=== PATIENT | female | born 1985 | race Caucasian/White ===

== ENCOUNTER 2017-02-11 11:22 | Inpatient (IN) ==
[2017-02-11] MEDS ORDERED: SODIUM CHLORIDE 0.9% INJ ONE (11:42)
[2017-02-11] MEDS ORDERED: PHENERGAN IV ONE (11:42)
[2017-02-11] MEDS ORDERED: D5 NS + KCL 20 MEQ 1,000 ML IV ONE (11:43)
[2017-02-11 12:34] LABS: BASO% 0.1 % (0.0-0.8); EOS# 0.05 X1000 (0.0-0.7); EOS% 0.6 % (0.0-10.0); HEMATOCRIT 36.4 % (37.0-47.0); HEMOGLOBIN 11.6 g/dL (12.0-16.0); IMM GRAN# 0.11 X1000 (0.0-0.04); IMM GRAN% 1.3 % (0.0-0.5); LYMPH# 0.78 X1000 (1.2-3.4); LYMPH% 8.9 % (20.5-51.1); MCH 27.4 PG (27-31); MCHC 31.9 g/dL (33-37); MCV 86.1 FL (81-99); MONO# 0.73 X1000 (0.11-0.59); MONO% 8.3 % (1.7-9.3); NEUT% 80.8 % (42.2-75.2); PLT 234 X1000 (130-400); RBC 4.23 XMIL (4.2-5.4)
[2017-02-11 12:36] LABS: MANUAL DIFF NEEDED? NO
[2017-02-11 12:43] LABS: AGAP 13; ALBUMIN 3.5 g/dL (3.5-5.0); ALKALINE PHOSPHATASE 186 U/L (32-104); BUN 9 mg/dL (8-22); CALCIUM 8.5 mg/dL (8.8-10.2); CHLORIDE 99 mmol/L (98-107); COSMO 274; GOT 17 U/L (10-30); GPT 16 U/L (10-36); POTASSIUM 4.4 mmol/L (3.5-5.1); SODIUM 138 mmol/L (136-145); TCO2 26 mmol/L (25-35); TOTAL PROTEIN 7.1 g/dL (6.3-8.3)
[2017-02-11] MEDS ORDERED: ATIVAN IV ONE (13:26)
--- NOTE | 2017-02-11 13:58 | PROVIDER DOCUMENTATION ---
This chart was entered by Renee Matias Scribe, acting as scribe for Romaine Thornton MD. HPI-Abdominal Pain/GI Problem - General Chief Complaint: N/V/D Stated Complaint: N/V/D Time Seen by Provider: 02/11/17 11:30 Source: patient, family (mother) Allergies/Adverse Reactions: Patient Allergies Allergy/AdvReac Type Severity Reaction Status Date / Time metronidazole [From Flagyl] Allergy Severe NAUSEA/VOMI Verified 01/05/17 15:32 TING Metronidazole HCl * Allergy Severe NAUSEA/VOMI Verified 01/05/17 15:32 [From Flagyl] TING Tetracyclines Allergy Severe VOMITING Verified 01/05/17 15:32 piperacillin sodium * Allergy Intermediate ITCHING Verified 01/05/17 15:32 [From Zosyn] tazobactam sodium * Allergy Intermediate ITCHING Verified 01/05/17 15:32 [From Zosyn] hydrocodone [Hydrocodone] Allergy Mild Unknown Verified 01/05/17 15:32 nabumetone [From Relafen] Allergy Mild NAUSEA Verified 01/05/17 15:32 Home Medications: Home Medication List Medication Instructions Recorded Confirmed Last Taken Type Citalopram Hydrobromide [Celexa] 20 mg PO DAILY 10/29/14 02/11/17 02/11/17 08: 00 History Estradiol/Norethindrone Acet 1 tab PO DAILY 10/29/14 02/11/17 02/11/17 08:00 History [Activella 0.5-0.1 mg Tablet] Omeprazole Magnesium 40 mg PO DAILY 10/29/14 02/11/17 02/11/17 08:00 History Promethazine [Phenergan] 25 mg VT Q6H PRN PRN #20 supp 04/30/16 02/11/17 22:00 Rx Morphine E.r. [Ms Contin] 45 mg PO BID 01/05/17 02/11/17 02/11/17 08:00 History Oxycodone HCl/Acetaminophen 1 each PO 4XDAY 01/05/17 02/11/17 01/06/17 06:00 History [Percocet 10-325 mg Tablet] Levothyroxine Sodium 50 mcg PO DAILY 02/11/17 02/11/17 Unknown History [Levothyroxine Sodium] Lorazepam [Lorazepam] 1 - 2 tab PO Q8HR PRN 02/11/17 02/11/17 Unknown History - History of Present Illness-ABD Nature of Presenting Problems: Pt is 31 y/o F presents to the ED with N/V/D. Pt states symptoms have been present for 3 days. Pt states she has not been able to keep anything down. Pt states she was able to keep down phenergan and oxy this am for pain. Pt states received IV chemo Tuesday. Pt states has not received IV chemo in one year. Pt states usually takes chemo pills. Pt states having cancer of colon that has moved to lungs, spine and abdomen. Pt states yesterday receiving fluids at [facility]. Pt's mother states 54 lb weight loss in 8 mths. Pt states oxygen at night. Pt denies F and chills. Abdominal Pain Onset Location: reports: generalized abdomen Pain Radiation: reports: no radiation Quality of Pain: reports: aching Severity in ED: reports: moderate Onset/Duration: reports: 3 days ago Timing: reports: still present Activities at Onset: reports: light activity Exposure to sick contacts?: No Modifying Factors: improves with: nothing Associated Symptoms: reports: diarrhea, loss of appetite, nausea, vomiting, weakness. denies: anxiety, arm pain, back/neck pain, chest pain, constipation, cough, diaphoresis, dizziness, EENT symptoms, fatigue, fever/chills, genitourinary problems, headaches, heartburn, joint pain, malaise, muscle aches , sinus congestion/drainage, rash, seizure, shortness of breath, sensory/motor loss, pain with inspiration, swelling/mass in abdomen, syncope, trouble walking Last BM: unsure Dark Stools Present?: reports: none noticed Rectal Bleeding: reports: none Rectal Pain: reports: none Emesis Description: reports: clear Bruising or Bleeding Gums?: No Similar Symptoms Previously?: Yes Recently seen or treated by another doctor?: Yes (seen at cancer center 24 hrs ago ) Review of Systems - Adult - REVIEW OF SYSTEMS - ADULT Constitutional: reports: no symptoms reported Eyes: reports: no symptoms reported Ears, Nose, Mouth & Throat: reports: no symptoms reported Cardiovascular: reports: no symptoms reported Respiratory: reports: no symptoms reported Gastrointestinal: reports: abdominal pain, diarrhea, nausea, poor appetite, vomiting Genitourinary: reports: no symptoms reported Musculoskeletal: reports: no symptoms reported Integumentary: reports: no symptoms reported Neurological: reports: no symptoms reported Psychiatric: reports: no symptoms reported Endocrine: reports: no symptoms reported Hematologic/Lymphatic: reports: no symptoms reported Allergic/Immunologic: reports: no symptoms reported All Other Systems: Reviewed and Negative Past History - Adult - PAST MEDICAL HISTORY-ADULT Review of Records: reports: Nursing Assessment Review, Medications Reviewed, Social history reviewed & non-contributory. Major Childhood Illnesses: reports: denies history Cardiovascular: reports: denies history Respiratory: reports: denies history Gastrointestinal: reports: cancer (colon) Obstetrical/Gynecological: reports: denies history Genitourinary: reports: denies history Musculoskeletal: reports: denies history Neurological: reports: denies history Endocrine/Immune: reports: hypoglycemia Other Conditions: reports: denies history - PRIOR SURGERIES/PROCEDURES Surgical/Procedure History: reports: hysterectomy, indwelling device, bowel surgery - IMMUNIZATION STATUS Childhood Immunizations: See Nurse Assessment Flu Vaccine: See Nurse Assessment - FAMILY HISTORY Family History: reviewed, not pertinent - SOCIAL HISTORY Smoking: denies Substance Use: denies Living Situation: family Physical Exam-General - PHYSICAL EXAM-ADULT Initial Vital Signs Reviewed: Yes - CONSTITUTIONAL General Appearance: alert, no apparent distress, thin - EYES Eyes: PERRL/EOMI, pink conjunctivae - HEAD, EARS, NOSE, MOUTH & THROAT HENMT: normocephalic/atraumatic, other (dry mucous membranes) - NECK Neck: normal inspection - RESPIRATORY Respiratory: chest non-tender, lungs clear, normal breath sounds - CARDIOVASCULAR Cardiovascular: normal peripheral pulses, regular rate, rhythm, other (port present to L side of chest) - GASTROINTESTINAL (ABDOMEN) Abdominal Exam: normal bowel sounds, non tender, soft - LYMPHATIC Lymphatic: no adenopathy - MUSCULOSKELETAL Back Exam: normal inspection Extremity: non-tender, normal inspection - SKIN Integumentary: normal color, normal turgor, warm/dry - NEUROLOGIC Neurologic: grossly normal - PSYCHIATRIC Psych/Mental Status: normal mood/affect, oriented x 3 Progress - PLAN OF CARE/RESULTS Progress/Plan/Lab Results: Vital Signs - 8 hr 02/11/17 11:26 Temperature 98.4 F Pulse Rate 123 H Respiratory Rate 22 Blood Pressure 118/76 O2 Sat by Pulse Oximetry 97 Result Diagrams: 02/11/17 12:14 02/11/17 12:14 - CONSULTS/PCP/HOSPITALIST Notification #1 *Consult/PCP/Hospitalist*: Hospitalist Time Discussed: 13:40 Reason/Comments: Dr. Thornton consulted with Hospitalist about admit of PT Consult Disposition: Admit Departure - Departure Date of Disposition Decision: 02/11/17 Time of Disposition Decision: 13:41 DIAGNOSIS: Vomiting due to chemotherapy Intractable vomiting Qualifiers: Vomiting type: unspecified Nausea presence: with nausea Qualified Code(s): R11.2 - Nausea with vomiting, unspecified Colon cancer Qualifiers: Colon location: unspecified part of colon Qualified Code(s): C18.9 - Malignant neoplasm of colon, unspecified Disposition: ADMITTED INPATIENT 09 Certified Medical Emergency: Emergent Condition: Good Referrals and Follow-Ups: Stephon Harrison [Primary Care Provider] - - Critical Care Note This patient required my direct & personal management of CC.: No This chart was documented by the indicated scribe, (Renee Matias, Thom) and accurately reflects the services I performed and decisions made by me, Romaine Thornton MD, as attested by the provider's signature.
--- NOTE | 2017-02-11 15:12 | Diag Imaging Result Doc PS360 ---
EXAM: THORAX/ABDOMEN/PELVIS HISTORY: severe n/v. H/o stage 4 colon ca TECHNIQUE: CT of the chest with intravenous contrast with dose reduction (clarity.) COMMENT: There are bilateral pleural fluid collections more so on the right than the left. Compared to the previous study of 12/02/2016 this is slightly worse. The mediastinum has not changed significantly. Numerous bilateral pulmonary nodules are present. These have generally increased in size since the previous study and have formed conglomerate masses in the lung bases which were not present previously. This is particularly evident in comparing the current study image 62 with that of the previous exams 75. CT of the abdomen with intravenous contrast: The gallbladder is distended unlikely previous examination of 12/02/2016. The spleen is actually slightly smaller measuring under 13 cm in AP dimension. The common bile duct is similar in size measuring almost 10 mm. There is a ureteral stent in the right kidney which was not present previously. There is fluid throughout the colon. The small bowel does not appear to be distended. There is some anasarca. The adrenal glands are not enlarged. There is there is retroperitoneal adenopathy some of which may be calcified. This is matted to over the lower abdomen to below the level of the bifurcation of the aorta. In aggregate to the adenopathy measures over 7.2 cm in diameter. This compares with 7.[address] of the pelvis with intravenous contrast: There is stool in the rectum. The urinary bladder wall is somewhat thickened. There is a small amount of free fluid in the pelvis. There are surgical clips and apparent suture lines in the rectum. There has been very little change in the appearance of the pelvis since the previous study. There is a mixed sclerotic lytic lesion on the left side of the L4 vertebral body which was not present at the time the previous study. Severe osteoblastic changes in the T12 and L1 vertebral bodies are again noted which have not changed. IMPRESSION: 1. Worsened pulmonary metastatic disease and pleural effusions. 2. Worsened anasarca and bony metastatic disease in L4. 3. Slightly improved retroperitoneal adenopathy. Electronically signed by Charles Zuleta 02/11/2017 3:10 PM
--- NOTE | 2017-02-11 15:49 | HISTORY AND PHYSICAL ---
PRIMARY CARE PROVIDER: Dr. Harrison. CHIEF COMPLAINT: Nausea, vomiting, diarrhea. HISTORY OF PRESENT ILLNESS: Ms. Langston is a very kind, yet unfortunate 31- year-old, female, who presents to the emergency department with complaints of right-sided abdominal pain and intractable nausea, vomiting, and diarrhea that started Tuesday. The patient has a history of stage IV metastatic colon cancer. She states that she had a small dose of chemotherapy administered on Tuesday at Dr. Stubbs's office, but was not pretreated for nausea and believes that this was the cause of her acute illness. She is also complaining of pain in her right lower quadrant, but states that this has been there for quite some time. Also, pain in her lower back, interestingly, the patient had ureteral stent placement by Dr. Patterson on 01/27/17. She denies fevers or chills. The patient states that none of this pain is new. The patient is A and O x3 and appears to be in no acute distress. Patient's parents are sitting at the bedside, along with a male guest. Denies any other symptoms. PAST MEDICAL HISTORY: 1. Stage IV metastatic colon cancer. 2. Hypothyroidism. 3. GERD. 4. Anxiety. 5. Chronic pain. PAST SURGICAL HISTORY: 1. Colon resection. 2. Colostomy and reversal. 3. Partial hysterectomy. 4. Ureteral stent. FAMILY HISTORY: Positive for diabetes, hypertension and dementia. But denies a family history of colon cancer. SOCIAL HISTORY: Denies the use of alcohol, tobacco, or illicit drugs. ALLERGIES: 1. Flagyl. 2. Tetracyclines. 3. Zosyn. 4. Hydrocodone. 5. Relafen. HOME MEDICATIONS: 1. Phenergan 25 mg p.r. q.6 hours p.r.n. 2. Percocet 10/325, p.o. q.4 hours. 3. Omeprazole magnesium 40 mg p.o. daily. 4. MS Contin 45 mg p.o. b.i.d. 5. Lorazepam 1 mg q.8 hours p.r.n. 6. Levothyroxine 50 mcg p.o. daily. 7. Activella 0.5/0.1 mg p.o. daily. 8. Celexa 20 mg p.o. daily. REVIEW OF SYSTEMS: See HPI. LABORATORY AND DIAGNOSTICS: White blood cell count 8.75, RBCs 4.23, hemoglobin 11.6, hematocrit 36.4, MCV 86.1, MCH 27.4. Sodium 138, potassium 4.4, chloride 99, bicarb 26, anion gap 13, BUN 9, creatinine 0.5, GFR greater than 60. Glucose 95, calcium 8.5, phosphorus 2.5, mag 2.0. AST 17, ALT 16, alkaline phosphatase 186, albumin 3.5. PHYSICAL EXAMINATION: VITAL SIGNS: Temperature 97.8, pulse rate 110, respiratory rate 18, blood pressure of 121/71. MAP 82. SpO2 97 on room air. GENERAL: Ms. Langston is a very petite, 31-year-old, female, who appears to have low nourishment, yet well developed and in no acute distress at this time. HEENT: Atraumatic. Normocephalic. PERRL. Mucous membrane moist. NECK: Supple. No lymphadenopathy. Trachea midline. No JVD. No thyromegaly. No bruits. CARDIOVASCULAR: Rate tachycardic, yet regular with no murmurs, no gallops. No rubs. S1-S2 heard. RESPIRATORY: Lung sounds clear and equal bilaterally with equal chest exertion and expansion. Nonlabored with no accessory muscle use. GI: Soft, and tender in the lower quadrants bilaterally. Nondistended. Bowel sounds normoactive x4 quadrants. Negative abdominal bruits. : Deferred. NEURO: No focal deficits noted. MUSCULOSKELETAL: Distal strength positive with steady gait. EXTREMITIES: No clubbing, no cyanosis, no edema. Distal pulses present and intact. SKIN: Warm, dry, intact with no rashes, no bruises. Patient's skin is pale. ASSESSMENT AND PLAN: 1. Right lower quadrant abdominal pain. We will order a CAT scan of the abdomen to rule out possible bowel obstruction. 2. Nausea, vomiting, diarrhea. The patient is currently wearing a Zofran patch , so we will treat nausea with Phenergan as needed. We will assess the cause of the diarrhea and nausea with a CAT scan of the abdomen and pelvis as listed above. We will keep the patient hydrated with IV normal saline at 85 mL per hour. 3. Stage IV metastatic colon cancer. We will consult Dr. Stubbs so that she may follow her patient closely while in the hospital. Again, we will perform a CAT scan of the abdomen and pelvis as listed above to rule out any further metastases or bowel obstruction. 4. Chronic pain. We will continue patient on home medications as needed for pain. 5. Hypothyroidism. We will check TFTs and manage accordingly. DVT PPx: Lovenox Dictated by BRANDEN De Leon for Kristen Kenny MD cc: BRANDEN De Leon MD Heather Shah, MD Dr. Hall MTDD
[2017-02-11] MEDS ORDERED: PHENERGAN PR PRN (16:16)
[2017-02-11] MEDS: PERCOCET-10 PO SCH ×2 (17:49→21:42)
[2017-02-11] MEDS: NS 1,000 ML IV SCH (17:50)
[2017-02-11] MEDS ORDERED: SODIUM PHOSPHATE 30 MMOL in NS 250 ML IV ONE (18:00)
[2017-02-11] MEDS ORDERED: MS CONTIN PO SCH (21:00)
[2017-02-11 22:23] LABS: URINE CULTURE NEEDED? NO; URINE MICRO REVIEW NEEDED? NO; URINE SOURCE CLEAN CATCH
[2017-02-11 22:27] LABS: BILIRUBIN URINE NEGATIVE (NEGATIVE); BLOOD URINE NEGATIVE (NEGATIVE); COLOR YELLOW; GLUCOSE URINE NEGATIVE (NEGATIVE); LEUKOCYTES URINE SMALL (NEGATIVE); NITRITE URINE NEGATIVE (NEGATIVE); PROTEIN URINE TRACE mg/dL (NEGATIVE); TURBIDITY URINE CLEAR (CLEAR); UR EPITHELIAL CELLS <10 /HPF (<10); URINE BACTERIA 1+ /HPF; URINE RBC <10 /HPF (<10); URINE WBC <10 /HPF (<10); UROBILINOGEN URINE NORMAL (NORMAL)
[2017-02-11 22:32] LABS: SP GRAVITY URINE 1.005
[2017-02-11] MEDS: PHENERGAN IV PRN (22:38)
[2017-02-12] MEDS: PERCOCET-10 PO PRN ×3 (05:26→15:34)
[2017-02-12 05:36] LABS: HEMATOCRIT 33.7 % (37.0-47.0); HEMOGLOBIN 10.7 g/dL (12.0-16.0); MCH 27.6 PG (27-31); MCHC 31.8 g/dL (33-37); MCV 87.1 FL (81-99); RBC 3.87 XMIL (4.2-5.4)
[2017-02-12] MEDS: NS 1,000 ML IV SCH ×3 (05:56→15:53)
[2017-02-12] MEDS: PHENERGAN IV PRN ×4 (05:56→21:04)
[2017-02-12] MEDS: SODIUM CHLORIDE 0.9% INJ PRN ×2 (05:56→21:04)
[2017-02-12 06:34] LABS: AGAP 14; BUN 7 mg/dL (8-22); CALCIUM 7.9 mg/dL (8.8-10.2); CHLORIDE 105 mmol/L (98-107); COSMO 280; IRON SATURATION 38 %; POTASSIUM 3.7 mmol/L (3.5-5.1); SODIUM 142 mmol/L (136-145); TCO2 23 mmol/L (25-35); TIBC 166 ug/dL; TOTAL IRON 63 ug/dL (49-151); UNBOUND IRON 103 ug/dL (112-346)
[2017-02-12] MEDS ORDERED: ESTRADIOL PO SCH (09:00)
[2017-02-12] MEDS ORDERED: NORETHINDRONE ACET PO SCH (09:00)
[2017-02-12] MEDS: SYNTHROID PO SCH (10:29)
[2017-02-12] MEDS: CELEXA PO SCH (10:29)
[2017-02-12] MEDS: PRILOSEC PO SCH (10:29)
[2017-02-12] MEDS: MS CONTIN PO SCH ×2 (10:29→21:59)
[2017-02-12 13:57] LABS: INR 1.07; PROTIME 11.3 Seconds (9.2-11.7)
--- NOTE | 2017-02-12 14:40 | PROGRESS NOTE ---
DATE: 02/12/2017 SUBJECTIVE: The patient states that she is still feeling nauseous, but has not had any vomiting spells since she has been in the hospital. The patient states that her diarrhea has improved. OBJECTIVE: Vital Signs: Temperature 98 degrees, blood pressure 120/69, heart rate 87, respirations 12, O2 saturations 95% on room air. General: This is a young female, lying in bed in no acute distress. Head: Normocephalic, atraumatic. Heart: S1, S2. Normal. Regular rate and rhythm. Lungs: Clear to auscultation bilaterally. No wheezing, no rales, no rhonchi. Abdomen: Positive bowel sounds, soft, nontender and nondistended. Extremities: No edema. No cyanosis. No calf tenderness. Neurologic: The patient is alert and oriented x3. No focal neurologic deficits noted. LABS: White blood cell count 5.1, hemoglobin 10, hematocrit 33, platelets 132. Sodium 142, potassium 3.7, chloride 105, CO2 23, BUN 7, creatinine 0.4, glucose 82. ASSESSMENT AND PLAN: 1. Persistent nausea and vomiting. The patient reports that she has been having problems with being able to keep food down since last April. We will continue with antiemetic therapy and consult gastroenterology. The patient is currently on intravenous fluid hydration. The patient may benefit from a gastric emptying study if no other etiology can be found. 2. Diarrhea appeared improved. 3. Metastatic colon cancer. Aware. Dr. Stubbs has been consulted. 4. Hypothyroidism. Continue on Synthroid. 5. Situational depression. Continue on Celexa. 6. Chronic pain secondary to metastatic disease. Continue on MS Contin 60 mg oral every 12 hours plus Percocet as needed. cc: Kristen Kenny MD
[2017-02-12] MEDS: ZYRTEC PO SCH (15:53)
--- NOTE | 2017-02-12 16:32 | CONSULTATION ---
DATE OF CONSULTATION: 02/12/2017 REQUESTING PHYSICIAN: Dr. Kenny. REASON FOR CONSULTATION: Colon cancer, patient known. HISTORY OF PRESENT ILLNESS: Ms. Langston is a 31-year-old, female, who is known to us as we are currently treating her for metastatic colorectal cancer. The patient had several lines of therapy previously. She has also recently been to [facility] for evaluation for possible clinical trial there, but did not qualify due to her respiratory status. Patient was recently started on Cyramza and Camptosar which she received on 02/07/2017. The patient had start calling our office towards the middle of the week complaining of nausea and vomiting as well as diarrhea. She was brought in a couple times to receive IV fluids and IV antiemetics. However on Tuesday01/20/2017, they called and reported that the patient was now unable to keep any food down including any pills. Patient is unable to keep her oral antiemetics and her long-acting pain medications down due to the nausea and vomiting. Patient was advised to report to the emergency department for further evaluation and treatment. It was decided for the patient to be admitted. Currently, the patient reports that she is doing much better. She has been getting IV Phenergan which has really helped her nausea and vomiting. She actually ate a clear liquid diet this morning, which so far has not caused her any problems. Patient is also now able to take her p.o. pain medications. PAST MEDICAL HISTORY: 1. Metastatic colon cancer. 2. Hypothyroidism. 3. GERD. 4. Anxiety. 5. Chronic pain. PAST SURGICAL HISTORY: 1. Colon resection. 2. Colostomy and reversal. 3. Partial hysterectomy. 4. Ureteral stent placement. 5. Previous spinal surgery due to cord compression. FAMILY HISTORY: Positive for diabetes, hypertension, and dementia. There is no family history of colon cancer. SOCIAL HISTORY: Patient denies any alcohol, tobacco, or illicit drug use. REVIEW OF SYSTEMS: As per the HPI. All else is negative. PHYSICAL EXAMINATION: Vital Signs: Temperature 97.8 degrees, heart rate 86, respirations 14, blood pressure 132/86, O2 saturation 97% on room air. General: Thin female, lying in hospital bed with her family at bedside. She is in no acute distress. HEENT: Head normocephalic, atraumatic. Eyes: Pupils equal, round, reactive. Ears, nose , throat, neck, and mouth: Mucosa appears to be normal. Trachea is midline. Cardiovascular: S1, S2 heard without any murmurs, gallops or rubs appreciated. Respiratory: Chest is clear to auscultation bilaterally with normal respiratory effort. Abdomen: Soft, nontender. Positive bowel sounds. Musculoskeletal: No bony abnormalities. Extremities: No edema. Neurologic : Patient is alert and orient x3. No focal motor deficits. LABORATORY STUDIES: White blood cells 5.14, hemoglobin 10.7, hematocrit 33.7, platelets 132,000. Sodium 142, potassium 3.7, chloride 105, BUN 7, creatinine 0.4, glucose 82. B12 adequate, folate 13.5, TSH 5.95, ferritin 266, iron 63, saturation percent 38. CT of chest, abdomen and pelvis which was compared to 12/02/2016 shows some worsening pulmonary metastatic disease and pleural effusions, worsening anasarca, and bony metastasis metastatic disease in L4, and a slightly improved retroperitoneal adenopathy. ASSESSMENT AND PLAN: 1. Metastatic colorectal cancer. The patient is now on Cyramza and Camptosar. Hospice versus palliative chemotherapy has been discussed with the patient previously. She is to proceed with more palliative chemotherapy as previously mentioned. Treatment currently on hold during her acute issues. Of note, patient did receive Neulasta on 02/08/2017. 2. Nausea and vomiting. Better controlled now with IV Phenergan. Continue it at this time. Continue to advance diet slowly. 3. Diarrhea. Camptosar can cause diarrhea. Believed to likely be treatment related. Cyramza can also cause some diarrhea. Continue current management. Stool cultures have been ordered. The patient has also been evaluated by GI. 4. Chronic pain secondary to colon cancer. The patient is currently on her home medications which she will continue. She is able to now take these without any issue. Continue the IV Phenergan as previously mentioned. 5. Dehydration. Patient will continue to receive IV fluids. Dehydration secondary to the nausea, vomiting and diarrhea. We want to thank you for consulting us on Ms. Langston while she is here at [facility]. We will continue following and adjust her treatment plan per her hospital course. Dictated by SARY Crouch for Va Stubbs MD cc: Va Stubbs MD [facility]
--- NOTE | 2017-02-12 16:38 | CONSULTATION ---
DATE OF CONSULTATION: 02/12/2017 CONSULTATION REASON: Nausea, vomiting, diarrhea, history of colon cancer. HISTORY OF PRESENT ILLNESS: This is a 31-year-old white female who reported to the emergency room with abdominal pain, nausea, vomiting and diarrhea that started on Tuesday. She had seen Dr. Stubbs on Tuesday and had a antibody infusion along with chemotherapy infusion. She had previously been on chemotherapy pills over the last year. She feels like the change in her chemotherapy caused her gastrointestinal symptoms. She was diagnosed with stage IV metastatic colon cancer in 2011. She states since April she has had episodes of nausea and vomiting. She has lost about 50 pounds since April. She also had recent urethral stent placement by Dr. Martinez on 01/27/2017 for obstructive symptoms related to her cancer. She usually has constipation and takes senna, MiraLAX and Colace. Yesterday she had diarrhea about 6 episodes but it stopped last night. PAST MEDICAL HISTORY: For stage IV metastatic colon cancer, hypothyroidism, GERD, anxiety, chronic pain. PAST SURGICAL HISTORY: She had colon resection in May 2012 with colostomy placement, she had repeat surgery in September 2012 for closure of her colostomy and bilateral oophorectomy. ALLERGIES: Flagyl causing nausea and vomiting, tetracycline causing vomiting, Zosyn causing itching, hydrocodone unknown, Relafen nausea. HOME MEDICATIONS: Oxycodone 10/325 one to two tablets every 4-6 hours as needed, Phenergan 25 mg every 6 hours as needed, omeprazole 40 mg daily, morphine ER 45 mg twice daily, lorazepam 1-2 tablets every 8 hours as needed, levothyroxine 50 mcg daily, Activella 1 tablet daily, Celexa 20 mg daily. SOCIAL HISTORY: Denies tobacco or alcohol use. FAMILY HISTORY: For diabetes, hypertension, dementia. No reported family history of colon cancer. REVIEW OF SYSTEMS: Per HPI. PHYSICAL EXAM: Vital Signs: Temperature 97.8 degrees, pulse 86, respirations 14, blood pressure 132/86. General: Patient is awake and alert. No acute distress. HEENT: Normocephalic, atraumatic. Pupils equal, round, reactive to light. Sclerae are nonicteric. Cardiovascular: Regular rate and rhythm. Respiratory: Lung sounds essentially clear. Abdomen: Soft, thin, nondistended. Bowel sounds present. Extremities: No lower extremity edema noted. IMPRESSION AND PLAN: 1. Nausea, vomiting, diarrhea. Continue symptomatic treatment. 2. Abdominal pain. 3. Stage IV metastatic colon cancer. Dr. Stubbs is following. CT scan showed worsened pulmonary metastatic disease and pleural effusions, worsened anasarca and bony metastatic disease in L4 and slightly improve retroperitoneal adenopathy. We will continue to be available. I have discussed this case with Dr. Tran. Continue symptomatic treatment and supportive care. Thank you for this consult. Dictated by BRANDEN Gabriel for Chandler Tran MD cc: BRANDEN Lowe MD
[2017-02-12] MEDS: ATIVAN PO PRN (19:55)
[2017-02-13] MEDS: NS 1,000 ML IV SCH ×2 (02:18→12:37)
[2017-02-13] MEDS: PERCOCET-10 PO PRN ×5 (02:18→20:34)
[2017-02-13 05:59] LABS: HEMATOCRIT 32.4 % (37.0-47.0); HEMOGLOBIN 10.1 g/dL (12.0-16.0); MCH 27.8 PG (27-31); MCHC 31.2 g/dL (33-37); MCV 89.3 FL (81-99); MPV 9.5 FL (7.4-10.4); RBC 3.63 XMIL (4.2-5.4)
[2017-02-13 06:06] LABS: AGAP 7; BUN 5 mg/dL (8-22); CALCIUM 8.1 mg/dL (8.8-10.2); CHLORIDE 107 mmol/L (98-107); COSMO 275; MAGNESIUM 1.8 mg/dL (1.5-2.7); POTASSIUM 3.8 mmol/L (3.5-5.1); SODIUM 139 mmol/L (136-145); TCO2 25 mmol/L (25-35)
[2017-02-13] MEDS: MS CONTIN PO SCH ×2 (09:08→20:14)
[2017-02-13] MEDS: PRILOSEC PO SCH (09:09)
[2017-02-13] MEDS: CELEXA PO SCH (09:09)
[2017-02-13] MEDS: SYNTHROID PO SCH (09:09)
[2017-02-13] MEDS: ZYRTEC PO SCH (09:17)
[2017-02-13] MEDS: PATIENT'S OWN MED PO SCH (09:18)
[2017-02-13] MEDS: ATIVAN PO PRN ×3 (13:10→22:22)
[2017-02-13] MEDS: PHENERGAN IV PRN ×2 (13:40→17:49)
[2017-02-13] MEDS: SODIUM CHLORIDE 0.9% INJ PRN (13:40)
--- NOTE | 2017-02-13 17:11 | PROGRESS NOTE ---
DATE: 02/13/2017 SUBJECTIVE: Patient is resting comfortably and was able to tolerate her full liquid diet and wanted to advance her diet. She denies any further vomiting today. Overall, her symptoms have improved. OBJECTIVE: Vital signs: Temperature 98.1 degrees, pulse 95 per minute, breathing at 20, blood pressure 126/98. Abdomen: Flat, soft, nontender. Bowel sounds are audible. LABORATORY AND IMAGING: Reviewed. Hemoglobin 10.1, hematocrit 32.4. CT scan of the abdomen done on 02/11/2017 showed worsened pulmonary metastatic disease with pleural effusion. There was some anasarca with bony metastasis to L4. ASSESSMENT AND PLAN: Metastatic colon cancer. Nausea, vomiting. There is question of possible gastroparesis. I think her symptoms could be related to her metastatic disease as well as medication that she is on that causes poor gastric emptying as well as sluggish bowel action. I have explained to her that in order for us to get a good read on the gastric emptying study, she will have to be taken off the pain medication for at least 12 hours, but she is reluctant to do that since she starts hurting pretty badly if she does not take her pain medications for more than 4-6 hours. In that case, there is no point in doing her gastric emptying study. I would cancel that and start her empirically on Reglan 5 mg t.i.d. a.c. Recommended her to continue MiraLAX that has helped her bowel movements and further plans of treatment will be made according to Dr. Stubbs, her oncologist, and the primary care team. cc: Chandler Tran MD
--- NOTE | 2017-02-13 17:32 | PROGRESS NOTE ---
DATE: 02/13/2017 SUBJECTIVE: The patient states that she is no longer having nausea or vomiting and she was able to tolerate a solid breakfast this morning. She did have a bowel movement yesterday. OBJECTIVE: Vital Signs: Temperature 98.1 degrees, blood pressure 126/98, heart rate 95, respirations 20, O2 saturation is 98% on room air. General: This is a young female, lying in bed, in no acute distress. Head: Normocephalic, atraumatic. Heart: S1, S2. Normal. Tachycardic. Lungs: Clear to auscultation bilaterally. No wheezing. No rales. No rhonchi. Abdomen: Positive bowel sounds. Soft, nontender, nondistended. Extremities: No edema. No cyanosis. No calf tenderness. Neurologic: The patient is alert and oriented x3. LABS: Sodium 139, potassium 3.8, chloride 107, CO2 25, BUN 5, creatinine 0.4, glucose 94. Hemoglobin 10, hematocrit 32. ASSESSMENT AND PLAN: 1. Intermittent nausea with vomiting. The patient has not had any episodes of nausea or emesis today and she was able to tolerate a solid diet. The patient is scheduled to undergo a gastric emptying study tomorrow. Continue on IV fluid hydration. GI is following. 2. Diarrhea. Resolved. 3. Hypothyroidism. Continue on Synthroid. 4. Situational depression. Continue on Celexa. 5. Metastatic colon cancer. Aware. Dr. Stubbs is following. 6. Chronic pain syndrome secondary to metastatic disease. Continue on MS Contin 60 mg oral every 12 hours plus Percocet for breakthrough pain. cc: Kristen Kenny MD
--- NOTE | 2017-02-13 18:49 | PROGRESS NOTE ---
DATE: 02/13/2017 CHIEF COMPLAINT: Dr. Tran told me my scans were much worse. Patient has been anxious overnight. PHYSICAL EXAMINATION: Vital signs: Temperature 98.1 degrees, pulse 95, respiratory rate 20, blood pressure 126/98, O2 saturation 98% on room air. General: This is a chronically ill- appearing woman in no acute distress. Her and her parents are at the bedside during visit. Eyes: Sclerae anicteric. Cardiovascular: Regular rate and rhythm. Normal S1, S2. No murmurs, rubs, or gallops. Pulmonary: Lungs clear auscultation bilaterally without wheezes, rales, or rhonchi. Gastrointestinal: Abdomen is soft, nontender, nondistended with normoactive bowel sounds. Extremities: No clubbing, cyanosis, or edema, 2+ pulses x4. Neuro: Alert, oriented x3, no focal deficit. LABORATORY DATA: White count 6, hemoglobin 10, platelet count 120,000. Sodium 139, creatinine 0.4, magnesium 1.8, cultures are negative. INR 1.07. Imaging was reviewed with the patient. However imaging in the hospital system appears to have been compared to images from over 1 year ago versus recent imaging that she has had at our office. I will request official comparison at her request. ASSESSMENT AND PLAN: 1. Nausea, vomiting: Improved. She has a mild nausea right now and is using Phenergan as needed. Gastric emptying study was planned but cannot be done while she is on her current pain medications. I have recommended a trial of Reglan. I will prescribe Reglan at this time and we will reassess. She will follow up with Dr. Tran over the next 24 hours. 2. Diarrhea: Treatment induced. Resolved. Her cultures were negative and C. difficile was negative. Continue supportive care. 3. Metastatic colorectal cancer: She is status post therapy last week. Treatment will be held until she recovers from her acute event. 4. Chronic pain: Related to her tumor. Continue her MS Contin and short-acting pain medications as needed. I have discussed her scan results which show continued mild regression as seen on her scans in our office recently. I will have official comparison as above done by radiology. cc: Va Stubbs MD
[2017-02-13] MEDS: REGLAN PO SCH (20:13)
[2017-02-13] MEDS ORDERED: MIRALAX PO SCH (21:00)
[2017-02-14 05:37] VITALS: BP 125/87
[2017-02-14] MEDS: PERCOCET-10 PO PRN (06:37)
[2017-02-14 06:51] LABS: HEMATOCRIT 33.8 % (37.0-47.0); HEMOGLOBIN 10.7 g/dL (12.0-16.0); MCH 27.7 PG (27-31); MCHC 31.7 g/dL (33-37); MCV 87.6 FL (81-99); MPV 9.7 FL (7.4-10.4); RBC 3.86 XMIL (4.2-5.4)
[2017-02-14] MEDS: REGLAN PO SCH ×2 (06:55→11:24)
[2017-02-14 06:59] LABS: AGAP 10; BUN 4 mg/dL (8-22); CALCIUM 8.1 mg/dL (8.8-10.2); CHLORIDE 106 mmol/L (98-107); COSMO 276; MAGNESIUM 1.6 mg/dL (1.5-2.7); POTASSIUM 3.6 mmol/L (3.5-5.1); SODIUM 140 mmol/L (136-145); TCO2 24 mmol/L (25-35)
[2017-02-14] MEDS ORDERED: REGLAN PO SCH (07:00)
[2017-02-14] MEDS ORDERED: MAGNESIUM SULFATE 2 GM/S.W.I. 2 GM/50 ML IVPB IV ONE (07:14)
[2017-02-14] MEDS ORDERED: NS 1,000 ML ONE (07:16)
[2017-02-14] MEDS: NS 1,000 ML IV SCH ×2 (08:42)
[2017-02-14] MEDS: CELEXA PO SCH (08:44)
[2017-02-14] MEDS: SYNTHROID PO SCH (08:44)
[2017-02-14] MEDS: PATIENT'S OWN MED PO SCH (08:44)
[2017-02-14] MEDS: MS CONTIN PO SCH (08:44)
[2017-02-14] MEDS: ZYRTEC PO SCH (08:44)
[2017-02-14] MEDS: PRILOSEC PO SCH (08:44)
[2017-02-14] MEDS ORDERED: MIRALAX PO SCH (09:00)
--- NOTE | 2017-02-14 13:17 | PROGRESS NOTE ---
DATE: 02/14/2017 SUBJECTIVE: Patient states she is feeling better. She is eating breakfast from an outside restaurant and tolerating that well. She states she had seen Dr. Stubbs, and she was comparing the CT scan that she had in her office to the recent one which had showed some mild regression from the CT in the office recently. The comparison of the CT scan done in the hospital was from 12/02/2016. She has seen Dr. Tian, who talked with the patient about the CT scan and discussed with her the findings from the scans that she does at [facility] in comparison to the scan that was done here in the hospital. The scan from [facility] had showed some mild regression of her disease. OBJECTIVE: Vital Signs: Temperature 97.6 degrees, pulse 91, respirations 20, blood pressure 125/87. LABORATORY: Hematology: White count 7.55, hemoglobin 10.7, hematocrit 33.8, MCV 87.6. Chemistry: Sodium 140, potassium 3.6, chloride 106, CO2 24, BUN 4, creatinine 0.4, glucose 96. ASSESSMENT AND PLAN: 1. Nausea and vomiting have improved. 2. Diarrhea is improving. Her stool cultures and Clostridium difficile culture was negative. 3. Metastatic colorectal cancer following with Dr. Stubbs. 4. Chronic pain. Continue symptomatic treatment and p.r.n. medications for nausea and pain. We will continue to be available as needed. The patient states she will probably get to go home today. She will follow up with Dr. Stubbs, as she recommends. Dictated by BRANDEN Gabriel for Chandler Tran MD cc: BRANDEN Lowe MD [facility]
--- NOTE | 2017-02-14 15:15 | PROGRESS NOTE ---
DATE: 02/14/2017 SUBJECTIVE: Ms. Langston is feeling better today. She ate some pancakes for breakfast. She is ready to go home. OBJECTIVE: Vital Signs: Temperature 97.6 degrees, heart rate 91, respirations 20, blood pressure 125/87, O2 saturation 95% on room air. CARDIOVASCULAR: Regular rate and rhythm. S1-S2 heard. No murmurs, gallops, rubs appreciated. Respiratory: Chest is clear to auscultation bilaterally with normal respiratory effort. Gastrointestinal: Some diffuse mild tenderness to palpation. No guarding. No rebounding. Positive bowel sounds. Extremities: No edema or swelling noted. LABORATORY: White blood cells 7.55. Hemoglobin 10.7, hematocrit 33.8, platelets a 123,000. Sodium 140, potassium 3.6, chloride 106, CO2 10, BUN 4. Creatinine 0.4. Glucose 276. ASSESSMENT AND PLAN: 1. Metastatic colorectal cancer. The patient will follow up with us as an outpatient to receive further palliative chemotherapy. 2. Nausea and vomiting. This has greatly improved. Much better control. She will be transitioned back to oral antibiotics as needed. 3. Delayed gastric emptying. Patient is tolerating Reglan and will continue upon discharge. 4. Diarrhea. This has resolved. Cultures have all been negative. Treatment induced. 5. Chronic pain related to her metastatic cancer. The patient will continue on her current p.o. pain medications. The pain is well controlled. DISPOSITION: We agree that the patient can be discharged today. She will have follow up with us as an outpatient. Dictated by SARY Crouch for Va Stubbs MD cc: Va Stubbs MD I have seen and examined the patient and I agree with the above A/P. Discharge home on regular diet as tolerated and Reglan QAC and QHS for now. Keep scheduled follow up with us next week. Va HANCOCK
--- NOTE | 2017-02-14 21:23 | DISCHARGE SUMMARY ---
ADMISSION DATE: 02/11/2017 DISCHARGE DATE: 02/14/2017 FINAL DISCHARGE DIAGNOSES: 1. Nausea with vomiting. 2. Diarrhea. 3. Hypothyroidism. 4. Metastatic colon cancer. 5. Situational depression. 6. Chronic pain syndrome secondary to metastatic disease. CONSULTATIONS PERFORMED DURING THIS HOSPITAL STAY: 1. Oncology consultation with Dr. Stubbs. 2. GI consultation with Dr. Tran. HOSPITAL COURSE: Ms. Langston is a 31-year-old female with a history of metastatic colon cancer who presented to the ER with a chief complaint of persistent nausea and vomiting. The patient was placed on bowel rest, started on IV fluids, pain medication and antiemetics. With bowel rest the patient's symptoms improved. Her diet was slowly advanced and she was started on Reglan before meals and at bedtime. This resulted in improvement in the patient's symptoms. The patient continued to improve clinically and was able to tolerate a solid diet on the day of discharge with no nausea or vomiting. The patient was discharged home on 02/14/2017. DISCHARGE MEDICATIONS: 1. MS Contin 60 mg p.o. every 12 hours. 2. Reglan 5 mg before meals and at bedtime. 3. Omeprazole 40 mg p.o. daily. 4. Celexa 20 mg p.o. daily. 5. Phenergan 25 mg per rectum every 6 p.r.n. for nausea. 6. Percocet 10/325, 1 tab oral every 4 hours p.r.n. for breakthrough pain. 7. Synthroid 50 mg oral daily. 8. Ativan 1 tab oral every 8 hours p.r.n. for anxiety. DISCHARGE DIET: Regular diet. ACTIVITY: As tolerated. FOLLOWUP INSTRUCTIONS: The patient will need to follow up with Dr. Stubbs . cc: Kristen Kenny MD
== END 2017-02-14 13:26 | disposition home or self-care (01) ==
LOC: ED 11:22 → 4N 14:38
PROVIDERS: ATTEND Internal Medicine

== ENCOUNTER 2017-02-26 13:54 | Inpatient (IN) ==
[2017-02-26] MEDS ORDERED: SODIUM CHLORIDE 0.9% INJ ONE ×2 (14:08→15:19)
[2017-02-26] MEDS ORDERED: NS 1,000 ML IV ONE (14:08)
[2017-02-26] MEDS ORDERED: PHENERGAN IV ONE ×2 (14:08→15:19)
--- NOTE | 2017-02-26 14:15 | PROVIDER DOCUMENTATION ---
This chart was entered by Renee Matias Scribe, acting as scribe for Gabriel Lugo MD. HPI-General Adult - General Chief Complaint: Nausea/Vomiting Stated Complaint: NAUSEA/VOMITING Time Seen by Provider: 02/26/17 14:04 Source: patient Allergies/Adverse Reactions: Patient Allergies Allergy/AdvReac Type Severity Reaction Status Date / Time metronidazole [From Flagyl] Allergy Severe NAUSEA/VOMI Verified 01/05/17 15:32 TING Metronidazole HCl * Allergy Severe NAUSEA/VOMI Verified 01/05/17 15:32 [From Flagyl] TING Tetracyclines Allergy Severe VOMITING Verified 01/05/17 15:32 piperacillin sodium * Allergy Intermediate ITCHING Verified 01/05/17 15:32 [From Zosyn] tazobactam sodium * Allergy Intermediate ITCHING Verified 01/05/17 15:32 [From Zosyn] hydrocodone [Hydrocodone] Allergy Mild Unknown Verified 01/05/17 15:32 nabumetone [From Relafen] Allergy Mild NAUSEA Verified 01/05/17 15:32 Home Medications: Home Medication List Medication Instructions Recorded Confirmed Last Taken Type Citalopram Hydrobromide [Celexa] 20 mg PO DAILY 10/29/14 02/26/17 02/25/17 20: 00 History 20 MG Estradiol/Norethindrone Acet 1 tab PO DAILY 10/29/14 02/26/17 02/25/17 20:00 History [Activella 0.5-0.1 mg Tablet] 1 TAB Omeprazole Magnesium 40 mg PO DAILY 10/29/14 02/26/17 02/25/17 20:00 History 40 MG Promethazine [Phenergan] 25 mg AK Q6H PRN PRN #20 supp 04/30/16 02/26/17 20:00 Rx 25 MG Oxycodone HCl/Acetaminophen 1 - 2 each PO Q4-6H PRN PRN 01/05/17 02/26/17 20:00 History [Percocet 10-325 mg Tablet] 1 - 2 EACH Levothyroxine Sodium 50 mcg PO DAILY 02/11/17 02/26/17 02/25/17 20:00 History 50 MCG Lorazepam 1 - 2 tab PO Q8HR PRN 02/11/17 02/26/1717 20:00 History 1 - 2 TAB Morphine E.r. [Ms Contin] 60 mg PO Q12HR tablet 02/14/17 02/26/17 02/25/17 20: 00 Rx 60 MG Metoclopramide HCl [Reglan] 5 - 10 mg PO AC + HS 02/27/17 02/27/17 02/25/17 History - History of Present Illness -Gen Adult Nature of Presenting Problems: Pt is 31 y/o F presents to the ED with N and V. Pt states she has colon cancer. Pt states she is currently on chemo. Pt states Reglan is not helping. Location of Pain/Injury: reports: none Pain Radiation: reports: no radiation Quality of Pain: reports: none Severity: reports: mild Onset/Duration: reports: unsure Timing: reports: still present Context/Activities at Onset: reports: light activity Modifying Factors: improves with: nothing Associated Symptoms: reports: nausea, vomiting, weakness. denies: anxiety, arm pain, back/neck pain, chest pain, constipation, cough, diaphoresis, diarrhea, dizziness, EENT symptoms, fatigue, fever/chills, genitourinary problems, headaches, heartburn, joint pain, loss of appetite, malaise, muscle aches, sinus congestion/drainage, rash, seizure, shortness of breath, sensory/motor loss, pain with inspiration, swelling/mass in abdomen, syncope, trouble walking Similar Symptoms Previously?: Yes Recently seen or treated by another doctor?: No Review of Systems - Adult - REVIEW OF SYSTEMS - ADULT Constitutional: reports: no symptoms reported Eyes: reports: no symptoms reported Ears, Nose, Mouth & Throat: reports: no symptoms reported Cardiovascular: reports: no symptoms reported Respiratory: reports: no symptoms reported Gastrointestinal: reports: nausea, vomiting. denies: abdominal pain, diarrhea Genitourinary: reports: no symptoms reported Musculoskeletal: reports: muscle weakness. denies: bone pain, joint pain, neck pain Integumentary: reports: no symptoms reported Neurological: reports: no symptoms reported Psychiatric: reports: no symptoms reported Endocrine: reports: no symptoms reported Hematologic/Lymphatic: reports: no symptoms reported Allergic/Immunologic: reports: no symptoms reported All Other Systems: Reviewed and Negative Past History - Adult - PAST MEDICAL HISTORY-ADULT Review of Records: reports: Nursing Assessment Review, Medications Reviewed, Social history reviewed & non-contributory. Major Childhood Illnesses: reports: denies history Cardiovascular: reports: denies history Respiratory: reports: denies history Gastrointestinal: reports: cancer (colon) Obstetrical/Gynecological: reports: denies history Genitourinary: reports: denies history Musculoskeletal: reports: denies history Neurological: reports: denies history Endocrine/Immune: reports: hypoglycemia Other Conditions: reports: denies history - PRIOR SURGERIES/PROCEDURES Surgical/Procedure History: reports: hysterectomy, indwelling device, bowel surgery - IMMUNIZATION STATUS Childhood Immunizations: See Nurse Assessment Flu Vaccine: See Nurse Assessment - FAMILY HISTORY Family History: reviewed, not pertinent - SOCIAL HISTORY Smoking: denies Substance Use: denies Living Situation: family Physical Exam-General - PHYSICAL EXAM-ADULT Initial Vital Signs Reviewed: Yes - CONSTITUTIONAL General Appearance: alert, no apparent distress, thin - EYES Eyes: PERRL/EOMI, pink conjunctivae - HEAD, EARS, NOSE, MOUTH & THROAT HENMT: normal ENT inspection - NECK Neck: normal inspection - RESPIRATORY Respiratory: chest non-tender, lungs clear, normal breath sounds - CARDIOVASCULAR Cardiovascular: normal peripheral pulses, regular rate, rhythm - GASTROINTESTINAL (ABDOMEN) Abdominal Exam: normal bowel sounds, non tender, soft - LYMPHATIC Lymphatic: no adenopathy - MUSCULOSKELETAL Back Exam: normal inspection Extremity: normal range of motion, normal inspection - SKIN Integumentary: normal color, normal turgor, warm/dry - NEUROLOGIC Neurologic: grossly normal - PSYCHIATRIC Psych/Mental Status: normal mood/affect, oriented x 3 Progress - PLAN OF CARE/RESULTS Progress/Plan/Lab Results: Vital Signs - 8 hr 02/26/17 13:59 Pulse Rate 117 H Respiratory Rate 20 Blood Pressure 165/105 O2 Sat by Pulse Oximetry 98 Orders Category Date Time Status 0.9% Sodium Chloride Inj [Ns] 1,000 ml Med 02/26/17 14:08 Active IV 999 mls/hr Result Diagrams: 02/28/17 04:50 02/28/17 04:50 - CONSULTS/PCP/HOSPITALIST Notification #1 *Consult/PCP/Hospitalist*: Hospitalist Time Discussed: 15:36 Reason/Comments: Dr. Lugo consulted with Hospitalist about Pt Consult Disposition: Admit Departure - Departure Date of Disposition Decision: 02/26/17 Time of Disposition Decision: 15:36 DIAGNOSIS: Intractable vomiting Qualifiers: Vomiting type: unspecified Nausea presence: unspecified Qualified Code(s): R11.10 - Vomiting, unspecified Disposition: ADMITTED INPATIENT 09 Certified Medical Emergency: Emergent Condition: Stable - Critical Care Note This patient required my direct & personal management of CC.: No This chart was documented by the indicated scribe, (Renee Matias Scribe) and accurately reflects the services I performed and decisions made by me, Gabriel Lugo MD, as attested by the provider's signature.
[2017-02-26] MEDS ORDERED: MORPHINE IV ONE ×2 (14:22→15:19)
[2017-02-26 15:02] LABS: BASO% 0.2 % (0.0-0.8); EOS# 0.04 X1000 (0.0-0.7); EOS% 0.3 % (0.0-10.0); HEMATOCRIT 37.4 % (37.0-47.0); HEMOGLOBIN 11.9 g/dL (12.0-16.0); IMM GRAN# 0.03 X1000 (0.0-0.04); IMM GRAN% 0.2 % (0.0-0.5); LYMPH# 0.48 X1000 (1.2-3.4); LYMPH% 3.8 % (20.5-51.1); MANUAL DIFF NEEDED? NO; MCH 27.7 PG (27-31); MCHC 31.8 g/dL (33-37); MONO# 0.44 X1000 (0.11-0.59); MONO% 3.5 % (1.7-9.3); MPV 9.7 FL (7.4-10.4); PLT 247 X1000 (130-400)
[2017-02-26 15:10] LABS: AGAP 17; ALBUMIN 3.4 g/dL (3.5-5.0); ALKALINE PHOSPHATASE 301 U/L (32-104); BUN 8 mg/dL (8-22); CALCIUM 9.1 mg/dL (8.8-10.2); CHLORIDE 96 mmol/L (98-107); COSMO 268; GOT 16 U/L (10-30); GPT 12 U/L (10-36); POTASSIUM 4.1 mmol/L (3.5-5.1); SODIUM 135 mmol/L (136-145); TCO2 22 mmol/L (25-35); TOTAL BILIRUBIN 0.36 mg/dL (0.20-1.00); TOTAL PROTEIN 7.5 g/dL (6.3-8.3)
[2017-02-26 15:29] LABS: URINE MICRO REVIEW NEEDED? NO; URINE SOURCE CLEAN CATCH
[2017-02-26 15:36] LABS: BILIRUBIN URINE NEGATIVE (NEGATIVE); BLOOD URINE TRACE (NEGATIVE); COLOR YELLOW; GLUCOSE URINE NEGATIVE (NEGATIVE); LEUKOCYTES URINE MODERATE (NEGATIVE); NITRITE URINE NEGATIVE (NEGATIVE); PH URINE 5.5; PROTEIN URINE 30 mg/dL (NEGATIVE); SP GRAVITY URINE 1.017; TURBIDITY URINE CLEAR (CLEAR); UROBILINOGEN URINE NORMAL (NORMAL)
[2017-02-26 15:40] LABS: UR EPITHELIAL CELLS <10 /HPF (<10); URINE BACTERIA NEGATIVE /HPF; URINE CULTURE NEEDED? YES; URINE RBC <10 /HPF (<10)
[2017-02-26] MEDS ORDERED: PHENERGAN IV PRN (16:36)
[2017-02-26] MEDS ORDERED: NS 1,000 ML IV SCH (16:36)
[2017-02-26] MEDS ORDERED: SODIUM CHLORIDE 0.9% INJ PRN (16:50)
--- NOTE | 2017-02-26 17:01 | Diag Imaging Result Doc PS360 ---
EXAM: FLAT/UPRIGHT ABD/1 VIEW CHEST HISTORY: n/v abd pain TECHNIQUE: Three views COMPARISON: 05/10/2016 FINDINGS: There are multiple scattered nodules in both lungs and there are increased interstitial markings throughout. The heart is not enlarged. There is a small right-sided pleural effusion. There is a left-sided portacatheter. No pneumothorax. No free air beneath the diaphragm. The T12 and L1 vertebra are sclerotic. These were dense on the prior exam as well. Interval placement of a right-sided ureteral stent. Mildly air distended loops of bowel mid abdomen. Stool is found in the proximal colon. IMPRESSION: 1.Pulmonary metastases better seen and described on the recent CT 02/11/2017 2.Bony metastases 3.Likely ileus or partial obstruction Electronically signed by Goldy Leal 02/26/2017 4:58 PM
[2017-02-26] MEDS: SODIUM CHLORIDE 0.9% INJ SCH ×2 (17:04→21:51)
[2017-02-26] MEDS: PEPCID IV SCH (17:05)
[2017-02-26] MEDS: PHENERGAN IV PRN ×2 (17:05→21:50)
[2017-02-26] MEDS: DILAUDID IV PRN ×3 (17:05→23:17)
[2017-02-26] MEDS: NS 1,000 ML IV SCH (17:15)
--- NOTE | 2017-02-26 18:02 | HISTORY AND PHYSICAL ---
ONCOLOGIST: Dr. Va Stubbs. PRIMARY CARE PHYSICIAN: Stephon Harrison. CHIEF COMPLAINT: Abdominal pain, nausea, vomiting. HISTORY OF PRESENT ILLNESS: Mrs. Langston is a 31-year-old, female, well known to our service, who was recently discharged, for nausea, vomiting and abdominal pain. She has an unfortunate history of metastatic colon cancer with lung involvement. She was here around 2 weeks ago and was seen by GI and Hematology/Oncology. There was no interventions done. She improved with bowel rest, fluids and antiemetics. After discharge she states that she is feeling actually fairly good. She has been eating until last night when she had acute onset of right lower quadrant abdominal pain followed by persistent nausea and vomiting. She denies any hematemesis. She does report she is having bowel movements without diarrhea. There is no melena or hematochezia. She denies any chest pain, shortness of breath, fever or chills. The intractable nausea and vomiting brought her into the ER today. Labs showed a white count of 12.69, with a questionable UTI. Otherwise her labs are unremarkable. We have ordered an abdominal x-ray and that is currently pending. We are going to admit her now for intractable nausea and vomiting. PAST MEDICAL HISTORY: 1. Stage IV colon cancer with lung involvement, followed by Dr. Stubbs. 2. Hypothyroidism. 3. GERD. 4. Anxiety. 5. Chronic pain. SURGICAL HISTORY: She has had a colon resection, colostomy and subsequent reversal, partial hysterectomy, and ureteral stent. FAMILY HISTORY: Significant for diabetes, hypertension, and dementia. SOCIAL HISTORY: Patient denies tobacco, alcohol or drug use. ALLERGIES: Flagyl, tetracycline, Zosyn, hydrocodone, and Relafen. HOME MEDICATIONS: Phenergan 25 mg p.r. every 6 hours as needed. Percocet 10 every 4 hours as needed for pain. Omeprazole 40 mg daily. MS Contin 45 mg p.o. b.i.d. Ativan 1 mg every 8 hours as needed. Levothyroxine 50 mcg p.o. daily. Activella 0.5/0.1 mg p.o. daily. Celexa 20 mg daily. REVIEW OF SYSTEMS: A 14 point review of systems was obtained and found to be negative with the exception of the HPI. PHYSICAL EXAMINATION: VITAL SIGNS: Blood pressure is 165/105, heart rate is 117, respiratory rate is 20, O2 saturation 98% on room air. No temperature recorded. GENERAL: This is a chronically ill and borderline cachectic appearing, 31-year-old, female, lying in hospital bed, in no acute distress. NEUROLOGIC: The patient is awake, alert, and oriented. She follows commands without focal deficits. HEENT: Head is atraumatic and normocephalic. Her pupils are equal, round, and reactive to light. Oral mucosa is dry. Trachea is midline. There is no JVD. CHEST: Diminished throughout with occasional expiratory wheezing. CV: Regular rate and rhythm. S1-S2 is noted. No murmurs. GI: Diffusely tender to palpation, mostly in the right lower quadrant. The belly is overall soft and nondistended. Bowel sounds are hypoactive. EXTREMITIES: No edema, clubbing, or cyanosis. Pulses diminished but palpable bilaterally. DIAGNOSTIC DATA: WBC 12.69, hemoglobin 11.9, hematocrit 37.4, platelet count 247,000. Sodium 135, potassium 4.1, chloride 96, CO2 22, anion gap 17, BUN 8, creatinine 0.5, glucose 99, calcium 9.1, bilirubin, total, 0.36. AST 16, ALT 12, alkaline phosphatase 301, albumin 3.4. UA is questionable UTI with moderate leukocytes and 10-20 WBCs. ASSESSMENT AND PLAN: 1. Intractable nausea and vomiting: We are going to check an x-ray of the abdomen and chest, keep her n.p.o., and add IV fluids and antiemetics. We will change her pain medication to IV. If her abdomen x-ray is abnormal we will get a CT. 2. Stage IV colon cancer: We will consult Dr. Stubbs, defer any management to her. 3. Gastroesophageal reflux disease: We have switched to IV famotidine b.i.d. 4. Chronic pain: We switched IV Dilaudid for now. Her pain is under control. 5. Hypothyroidism, we will restart her medication once she is able to tolerate p.o. 6. Situational depression: I will continue her Celexa when she can tolerate p.o. medications. 7. Deep vein thrombosis prophylaxis with Lovenox. 8. Further recommendations to follow. Dictated by BRANDEN De Leon for Kristen Kenny MD cc: BRANDEN De Leon MD
[2017-02-26] MEDS: ZOFRAN IV PRN ×2 (19:42→23:11)
[2017-02-27] MEDS: NS 1,000 ML IV SCH ×2 (01:04→08:49)
[2017-02-27] MEDS: SODIUM CHLORIDE 0.9% INJ SCH ×3 (02:19→16:12)
[2017-02-27] MEDS: PHENERGAN IV PRN ×4 (02:19→18:23)
[2017-02-27] MEDS: DILAUDID IV PRN ×7 (02:20→21:14)
[2017-02-27] MEDS: PEPCID IV SCH ×2 (03:58→16:11)
[2017-02-27] MEDS: ZOFRAN IV PRN ×3 (04:45→14:50)
[2017-02-27 05:57] LABS: HEMATOCRIT 34.9 % (37.0-47.0); HEMOGLOBIN 10.8 g/dL (12.0-16.0); MCH 27.9 PG (27-31); MCHC 30.9 g/dL (33-37); MCV 90.2 FL (81-99); MPV 9.9 FL (7.4-10.4); RBC 3.87 XMIL (4.2-5.4)
[2017-02-27 06:20] LABS: AGAP 16; BUN 7 mg/dL (8-22); CALCIUM 8.5 mg/dL (8.8-10.2); CHLORIDE 105 mmol/L (98-107); COSMO 282; SODIUM 143 mmol/L (136-145); TCO2 22 mmol/L (25-35)
[2017-02-27] MEDS: SODIUM CHLORIDE 0.9% INJ PRN ×3 (06:31→18:23)
--- NOTE | 2017-02-27 12:01 | Diag Imaging Result Doc PS360 ---
EXAM: ABDOMEN FLAT/UPRIGHT HISTORY: ileus TECHNIQUE: Two views COMPARISON: 02/26/2017 FINDINGS: There are increased interstitial markings in the lower lungs as well as a right-sided pleural effusion. Sclerosis to the T12 and L1 vertebra. No free air beneath the diaphragm. No change in the right ureteral stent. There are surgical clips overlying the pelvis. The bowel loops are slightly less distended than they were previously. IMPRESSION: Mild interval improvement. Electronically signed by Goldy Leal 02/27/2017 11:59 AM
[2017-02-27] MEDS ORDERED: ATIVAN PO PRN (14:11)
[2017-02-27] MEDS: REGLAN PO SCH ×3 (14:50→21:10)
[2017-02-27] MEDS: 1/2 NS 1,000 ML IV SCH (17:25)
--- NOTE | 2017-02-27 17:55 | PROGRESS NOTE ---
DATE: 02/27/2017 SUBJECTIVE: The patient states that she has had several bowel movements overnight and wants to try clear liquids. She denies having any nausea at this time. OBJECTIVE: Vital Signs: Temperature 98 degrees, blood pressure 146/101, respirations 12, heart rate 100, O2 saturations 98% on room air. General: This is a young female, lying in bed, in no acute distress. Head: Normocephalic, atraumatic. Heart: S1, S2. Normal. Regular rate and rhythm. Lungs: Clear to auscultation bilaterally. No wheezing. No rales. No rhonchi. Abdomen: Positive bowel sounds. Soft, nontender, nondistended. Extremities: No edema. No cyanosis. No calf tenderness. Neurologic: The patient is alert and oriented x3. LABORATORY: White blood cell count 12, hemoglobin 10, hematocrit 34, platelets 223,000. Sodium 143, potassium 4, chloride 105, CO2 22, BUN 7, creatinine 0.5, glucose 90. IMAGING: Abdominal x-ray shows mild improvement. ASSESSMENT AND PLAN: 1. Ileus. The patient has had several bowel movements overnight. We will start a clear liquid diet and resume the patient's Reglan. We will check another x-ray in the morning. 2. Metastatic colon cancer. Aware. 3. Hypothyroidism. Continue on Synthroid. 4. Leukocytosis. We will monitor this closely. 5. Anxiety disorder. Continue on Xanax p.r.n. 6. Chronic pain syndrome. We will restart the patient's MS Contin and Percocet for breakthrough pain. 7. Deep vein thrombosis prophylaxis. We will start the patient on Lovenox. 8. The plan of care was discussed with the patient and her family at the bedside. cc: Kristen Kenny MD
[2017-02-27] MEDS: PERCOCET-10 PO PRN (19:45)
[2017-02-27] MEDS: MS CONTIN PO SCH (21:09)
[2017-02-28] MEDS: PERCOCET-10 PO PRN ×3 (03:43→20:59)
[2017-02-28] MEDS: PEPCID IV SCH ×2 (03:44→16:53)
[2017-02-28 05:22] LABS: HEMATOCRIT 31.3 % (37.0-47.0); HEMOGLOBIN 9.6 g/dL (12.0-16.0); MCHC 30.7 g/dL (33-37); MCV 91.3 FL (81-99); MPV 9.4 FL (7.4-10.4); RBC 3.43 XMIL (4.2-5.4)
[2017-02-28 05:38] LABS: AGAP 11; BUN 4 mg/dL (8-22); CALCIUM 7.7 mg/dL (8.8-10.2); CHLORIDE 103 mmol/L (98-107); COSMO 270; POTASSIUM 3.5 mmol/L (3.5-5.1); SODIUM 137 mmol/L (136-145); TCO2 23 mmol/L (25-35)
[2017-02-28] MEDS: SYNTHROID PO SCH ×2 (05:59→06:25)
[2017-02-28] MEDS: PRILOSEC PO SCH (05:59)
[2017-02-28] MEDS: REGLAN PO SCH ×4 (05:59→20:58)
[2017-02-28] MEDS: DILAUDID IV PRN ×4 (07:30→22:53)
[2017-02-28] MEDS: 1/2 NS 1,000 ML IV SCH (07:34)
[2017-02-28] MEDS: CELEXA PO SCH (09:20)
[2017-02-28] MEDS: MS CONTIN PO SCH ×2 (09:20→20:58)
[2017-02-28] MEDS: LOVENOX SUBQ SCH (09:20)
[2017-02-28] MEDS: PATIENT'S OWN MED PO SCH (09:51)
--- NOTE | 2017-02-28 10:09 | Diag Imaging Result Doc PS360 ---
ABDOMEN FLAT/UPRIGHT - 02/28/2017 INDICATION: ileus TECHNIQUE: Two views COMPARISON: 02/27/2017 FINDINGS: There is a stable right nephroureteral stent in good position. Stable surgical clips over the sacrum. Stable abnormal sclerosis of T12 and L1 vertebral bodies. There is more colonic gas on today's exam. There is decrease in the distended small bowel loops. No free air. There are numerous nodular opacities throughout the lung bases. IMPRESSION: Improvement in the ileus. No new abnormality. Electronically signed by Jovan Scott 02/28/2017 10:07 AM
--- NOTE | 2017-02-28 15:35 | PROGRESS NOTE ---
DATE: 02/28/2017 SUBJECTIVE: The patient is resting comfortably in bed. She is having regular bowel movements and wants to try solid food today. OBJECTIVE: Vital Signs: Temperature 97.8 degrees, blood pressure 144/92, heart rate 90, respirations 18, O2 saturations 97% on room air. General: Is a young female lying in bed in no acute distress. Head: Normocephalic, atraumatic. Heart: S1, S2. Normal. Regular rate and rhythm. Lungs: Clear to auscultation bilaterally. No wheezing. No rales. No rhonchi. Abdomen: Positive bowel sounds. Soft, nontender, nondistended. Extremities: No edema. No cyanosis. No calf tenderness. Neurologic: The patient is alert and oriented x3. LABS: White blood cell count 5.8, hemoglobin 9.6, hematocrit 31, platelets 142,000. Sodium 137, potassium 3.5, chloride 103, CO2 23, BUN 4, creatinine 0.4, glucose 91. Abdominal x-ray shows improvement in the ileus. ASSESSMENT AND PLAN: 1. Ileus. Improved. Will advance the patient's diet to GI soft diet. Will continue with Reglan before meals and at bedtime. 2. Metastatic colon cancer. Aware. 3. Hypothyroidism. Continue on Synthroid. 4. Leukocytosis. Resolved. 5. Anxiety disorder. Continue on p.r.n. Xanax. 6. Chronic pain syndrome. Continue on MS Contin plus Percocet. 7. Deep vein thrombosis prophylaxis. Continue on Lovenox. 8. Will consult physical therapy. cc: Kristen Kenny MD
[2017-02-28] MEDS: SODIUM CHLORIDE 0.9% INJ SCH (16:53)
[2017-02-28] MEDS: SODIUM CHLORIDE 0.9% INJ PRN ×3 (17:31→22:52)
[2017-02-28] MEDS: PHENERGAN IV PRN ×3 (17:31→22:52)
[2017-02-28] MEDS: MIRALAX PO SCH (20:58)
[2017-02-28] MEDS: ZOFRAN IV PRN (22:00)
[2017-03-01] MEDS: SODIUM CHLORIDE 0.9% INJ SCH ×2 (04:49→16:47)
[2017-03-01] MEDS: PEPCID IV SCH ×2 (04:49→16:48)
[2017-03-01] MEDS: PERCOCET-10 PO PRN ×2 (04:49→15:57)
[2017-03-01 05:59] LABS: HEMATOCRIT 34.9 % (37.0-47.0); HEMOGLOBIN 10.9 g/dL (12.0-16.0); MCH 27.9 PG (27-31); MCHC 31.2 g/dL (33-37); MCV 89.5 FL (81-99); MPV 10.4 FL (7.4-10.4); RBC 3.9 XMIL (4.2-5.4)
[2017-03-01] MEDS: REGLAN PO SCH ×4 (06:13→20:45)
[2017-03-01 06:14] LABS: AGAP 11; BUN 5 mg/dL (8-22); CALCIUM 8.6 mg/dL (8.8-10.2); CHLORIDE 103 mmol/L (98-107); COSMO 273; POTASSIUM 3.7 mmol/L (3.5-5.1); SODIUM 138 mmol/L (136-145); TCO2 24 mmol/L (25-35)
[2017-03-01] MEDS: PRILOSEC PO SCH (06:14)
[2017-03-01] MEDS: SYNTHROID PO SCH (06:14)
[2017-03-01] MEDS: DILAUDID IV PRN ×4 (06:23→23:16)
[2017-03-01] MEDS: SODIUM CHLORIDE 0.9% INJ PRN ×3 (08:51→18:15)
[2017-03-01] MEDS: CELEXA PO SCH (08:52)
[2017-03-01] MEDS: MS CONTIN PO SCH ×2 (08:52→20:44)
[2017-03-01] MEDS: PHENERGAN IV PRN ×3 (08:52→18:15)
[2017-03-01] MEDS: LOVENOX SUBQ SCH (08:52)
[2017-03-01] MEDS: PATIENT'S OWN MED PO SCH (08:57)
--- NOTE | 2017-03-01 13:58 | Diag Imaging Result Doc PS360 ---
EXAM: ABDOMEN FLAT/UPRIGHT HISTORY: ileus TECHNIQUE: Flat and upright abdomen COMMENT: There is a right ureteral stent. There is stool and gas throughout the colon. There is no evidence of small bowel dilatation. The stomach is not particularly distended although there is some gas and food particles within it. Dense sclerosis is present at T12 and L1 as on the previous study of 02/28/2017. IMPRESSION: Constipation. Pulmonary and osseous metastatic disease. Otherwise nonspecific abdomen. Electronically signed by Charles Zuleta 03/01/2017 1:55 PM
[2017-03-01] MEDS ORDERED: BENADRYL IV PRN (16:06)
--- NOTE | 2017-03-01 17:02 | CONSULTATION ---
DATE OF CONSULTATION: 02/28/2017 REQUESTED BY: Hospitalist Service. REASON FOR CONSULTATION: Metastatic colon cancer, patient known to us. HISTORY OF PRESENT ILLNESS: Ms. Langston is a 31-year-old, female who is known to us as we are currently treating her for metastatic colon cancer. The patient has most recently received Cyramza on 02/21/2017. The patient was actually in the hospital a couple of weeks ago after her first cycle of treatment with Camptosar and Cyramza complaining of nausea, vomiting, diarrhea at that time. The patient has now represented to the emergency department complaining of nausea, vomiting, with abdominal pain. She has been admitted for further evaluation and treatment. She denied any fever or chills. Examination revealed the patient to have an ileus or partial obstruction. As of now, her symptoms are starting to improve. PAST MEDICAL HISTORY: 1. Metastatic colon cancer. 2. Hypothyroidism. 3. GERD. 4. Anxiety. 5. Chronic pain. PAST SURGICAL HISTORY: 1. Colon resection. 2. Colostomy and reversal. 3. Partial hysterectomy. 4. Ureteral stent placement. 5. 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 FAMILY HISTORY: Positive for diabetes, hypertension dementia. No family history of colon cancer. SOCIAL HISTORY: Patient denies alcohol, tobacco or illicit drug use. The patient is . She also has a very supportive family. REVIEW OF SYSTEMS: 12 point review of systems has been completed and is negative except for what is expressed in the HPI. PHYSICAL EXAMINATION: Vital Signs: Temperature 97.8 degrees, heart rate 90, respirations 18, blood pressure 144/92, O2 saturation 97% on room air. General: female, lying in hospital bed in no acute distress. HEENT: Head normocephalic, atraumatic. Eyes: Pupils equal, round, reactive. Ears, nose, throat, neck, mouth: Oral mucosa is normal. Trachea is midline. Gross auditory acuity is intact. Cardiovascular: S1-S2 heard. No murmurs, gallops, rubs appreciated. Respiratory: Chest is clear to auscultation bilaterally. Normal respiratory effort. Gastrointestinal: Abdomen is soft. Mildly distended. Some diffuse abdominal tenderness. Musculoskeletal: No obvious bony abnormalities. Extremities: Trace lower extremity edema. Neurologic: Patient alert oriented x3. No focal motor deficits noted. LABS AND STUDIES: White blood cells 5.82, hemoglobin 9.6, hematocrit 31.3, platelet count 152,000. Sodium 137, potassium 3.5, chloride 103, CO2 23, BUN is 4, creatinine 0.4, glucose 91. IMAGING: Most recent abdominal x-ray done on 02/28/2017 showed improvement an ileus, no new abnormality. ASSESSMENT AND PLAN: 1. Metastatic colon cancer. Treatment will be on hold during the patient's acute illness. She is due for repeat assessment next week in the office prior to her next treatment cycle. 2. Ileus. Agree with advancing diet as tolerated. 3. Chronic pain syndrome secondary to the patient's metastatic cancer. Agree with continuing oral pain medications at this time. The patient can have IV Dilaudid p.r.n. as well. 4. Anxiety disorder. The patient will continue her Xanax p.r.n. 5. Nausea and vomiting. Improving as ileus improves. Patient will continue to receive IV antiemetics p.r.n. Thank you for consulting us on Cheryl Langston while she is at [facility]. We will continue to follow along and adjust our treatment plan per hospital course. Dictated by SARY Crouch for Rinku Rojas MD cc: Rinku Rojas MD
[2017-03-01] MEDS: COLACE PO SCH (20:44)
[2017-03-01] MEDS: MIRALAX PO SCH (20:45)
--- NOTE | 2017-03-01 21:35 | PROGRESS NOTE ---
DATE: 03/01/2017 SUBJECTIVE: The patient states that she had some abdominal pain last night after eating dinner, but otherwise feels great this morning. She was able to tolerate her breakfast without any difficulty. OBJECTIVE: Vital Signs: Temperature 98 degrees, blood pressure 114/68, heart rate 78, respirations 16, O2 saturations 98% on room air. General: This is a young female lying in bed in no acute distress. Head: Normocephalic, atraumatic. Heart: S1, S2. Normal. Regular rate and rhythm. Lungs: Clear to auscultation bilaterally. No wheezes, no rales. No rhonchi. Abdomen: Positive bowel sounds. Soft, nontender, nondistended. Extremities: No edema. No cyanosis. No calf tenderness. Neurologic: The patient is alert and oriented x3. LABORATORY: Reviewed. IMAGING: Abdominal x-ray reveals constipation. ASSESSMENT AND PLAN: 1. Ileus with constipation. Continue with scheduled laxative therapy plus Reglan. 2. Metastatic colorectal cancer. Aware. The patient is followed by Dr. Stubbs. 3. Hypothyroidism. Continue on Synthroid. 4. Chronic pain secondary to metastatic disease. Continue on MS Contin plus Percocet. 5. Deep vein thrombosis prophylaxis. Continue on Lovenox. 6. Continue with ambulation in the hallways as much as possible. cc: Kristen Kenny MD
[2017-03-02] MEDS: DILAUDID IV PRN ×6 (05:01→23:09)
[2017-03-02] MEDS: SODIUM CHLORIDE 0.9% INJ SCH ×3 (05:44→16:53)
[2017-03-02] MEDS: PRILOSEC PO SCH ×2 (05:45→06:00)
[2017-03-02] MEDS: REGLAN PO SCH ×6 (05:46→21:36)
[2017-03-02] MEDS: SYNTHROID PO SCH ×2 (05:46→06:00)
[2017-03-02] MEDS: PEPCID IV SCH ×2 (05:47→17:58)
[2017-03-02] MEDS ORDERED: MAGNESIUM SULFATE 2 GM/S.W.I. 2 GM/50 ML IVPB IV ONE (06:16)
[2017-03-02 06:19] LABS: AGAP 14; BUN 5 mg/dL (8-22); CHLORIDE 103 mmol/L (98-107); COSMO 281; POTASSIUM 3.9 mmol/L (3.5-5.1); SODIUM 142 mmol/L (136-145); TCO2 25 mmol/L (25-35)
[2017-03-02] MEDS ORDERED: DULCOLAX PR ONE (08:43)
[2017-03-02] MEDS: COLACE PO SCH ×2 (09:45→21:36)
[2017-03-02] MEDS: MS CONTIN PO SCH ×2 (09:45→21:35)
[2017-03-02] MEDS: CELEXA PO SCH (09:46)
[2017-03-02] MEDS: LOVENOX SUBQ SCH (09:46)
[2017-03-02] MEDS: LACTULOSE PO SCH ×2 (09:46→21:35)
[2017-03-02] MEDS: PATIENT'S OWN MED PO SCH (09:47)
[2017-03-02] MEDS: SODIUM CHLORIDE 0.9% INJ PRN ×2 (10:23→22:06)
[2017-03-02] MEDS: PHENERGAN IV PRN ×5 (10:23→22:05)
--- NOTE | 2017-03-02 14:48 | PROGRESS NOTE ---
DATE: 03/02/2017 SUBJECTIVE: The patient is resting comfortably in bed. She states that she has not had a bowel movement yet. The patient had a small bowel movement this morning. She is tolerating her diet without any difficulty. OBJECTIVE: Vital Signs: Temperature 97.9 degrees, blood pressure 136/91, heart rate 108, respirations 18, O2 saturations 96% on room air. General: This is a young female, lying in bed in no acute distress. Head: Normocephalic, atraumatic. Heart: S1, S2. Normal. Tachycardic. Lungs: Clear to auscultation bilaterally. No wheezing. No rales. No rhonchi. Abdomen: Positive bowel sounds. Soft, nontender, nondistended. Extremities: No edema. No cyanosis. No calf tenderness. Neurologic: The patient is alert and oriented x3. LABS: Sodium 142, potassium 3.9, chloride 103, CO2 25, BUN 5, creatinine 0.4, glucose 102, magnesium 1.5. ASSESSMENT AND PLAN: 1. Ileus with constipation. Improved. Continue on scheduled laxative therapy plus Reglan. 2. Hypothyroidism. Continue on Synthroid. 3. Metastatic colorectal cancer. Aware. The patient is followed by Dr. Stubbs as outpatient. 4. Chronic pain secondary to metastatic disease. Continue on MS Contin plus Percocet. 5. Deep vein thrombosis prophylaxis. Continue on Lovenox. 6. Disposition: We will plan to discharge the patient home once her constipation has resolved. cc: Kristen Kenny MD
[2017-03-02] MEDS: PERCOCET-10 PO PRN (20:42)
[2017-03-02] MEDS: MIRALAX PO SCH (21:38)
[2017-03-03] MEDS: DILAUDID IV PRN ×5 (02:21→20:57)
[2017-03-03] MEDS: PEPCID IV SCH ×2 (05:28→17:20)
[2017-03-03] MEDS: REGLAN PO SCH ×5 (05:28→20:42)
[2017-03-03] MEDS: SYNTHROID PO SCH ×2 (05:28→06:05)
[2017-03-03] MEDS: PRILOSEC PO SCH ×2 (05:28→06:05)
[2017-03-03 05:43] LABS: HEMATOCRIT 31.7 % (37.0-47.0); HEMOGLOBIN 9.9 g/dL (12.0-16.0); MCHC 31.2 g/dL (33-37); MCV 89.5 FL (81-99); MPV 11.2 FL (7.4-10.4); RBC 3.54 XMIL (4.2-5.4)
[2017-03-03 06:06] LABS: AGAP 10; BUN 5 mg/dL (8-22); CALCIUM 8.7 mg/dL (8.8-10.2); CHLORIDE 103 mmol/L (98-107); COSMO 275; MAGNESIUM 1.9 mg/dL (1.5-2.7); POTASSIUM 3.9 mmol/L (3.5-5.1); SODIUM 139 mmol/L (136-145); TCO2 26 mmol/L (25-35)
[2017-03-03] MEDS: SODIUM CHLORIDE 0.9% INJ SCH (06:31)
[2017-03-03] MEDS: PHENERGAN IV PRN ×4 (06:31→20:57)
--- NOTE | 2017-03-03 07:48 | Diag Imaging Result Doc PS360 ---
EXAM: ABDOMEN FLAT/UPRIGHT INDICATION: constipation TECHNIQUE: 2 views COMPARISON: 03/01/2017 FINDINGS: There is increased colonic stool suggesting moderate constipation. There is mild gaseous distention of the transverse colon. There is minimal patchy small bowel gas that is nonspecific. There is nothing specific for obstruction. There is no evidence of large volume free abdominal gas. A right ureteral stent is in stable position. There are known sclerotic metastases involving the spine. IMPRESSION: Suggestion of constipation. Electronically signed by Calixto Muir 03/03/2017 7:46 AM
[2017-03-03] MEDS: LOVENOX SUBQ SCH (10:29)
[2017-03-03] MEDS: LACTULOSE PO SCH ×2 (10:29→20:43)
[2017-03-03] MEDS: DULCOLAX PR SCH (10:29)
[2017-03-03] MEDS: PERCOCET-10 PO PRN ×3 (10:30→23:09)
[2017-03-03] MEDS: CELEXA PO SCH (10:30)
[2017-03-03] MEDS: COLACE PO SCH ×2 (10:30→20:41)
[2017-03-03] MEDS: MS CONTIN PO SCH ×2 (10:31→20:42)
[2017-03-03] MEDS: PATIENT'S OWN MED PO SCH (10:33)
[2017-03-03] MEDS ORDERED: ATIVAN IV PRN (11:44)
--- NOTE | 2017-03-03 14:52 | PROGRESS NOTE ---
DATE: 03/03/2017 SUBJECTIVE: This patient is not complaining of abdominal pain. She has been having bowel movements, but she has been having nausea and not eating well. I have consulted the dietitian to evaluate this patient. She has severe protein calorie malnutrition. This patient looks severely depressed and anxious. She is on Celexa and I have added Ativan p.r.n. Continue with physical therapy. OBJECTIVE: Vital Signs: Temperature 97.9 degrees, pulse 96, respiratory rate 16, blood pressure 126/79, oxygen saturation 96% on room air. HEENT: Head normocephalic. No trauma. PERRLA. Neck: Supple. No JVD. No masses. Central trachea. Chest: Clear to auscultation. No wheezing. No rales. Abdomen: Soft, nontender, nondistended. No hepatosplenomegaly. Extremities: No edema. No clubbing. No cyanosis. Decreased muscle mass. Neurological: The patient is alert and oriented x3. No focal neurological deficits. LABORATORY: WBC 4.2, hemoglobin 9.9, hematocrit 31.7, platelet 119,000. Sodium 139, potassium 3.9, chloride 103, bicarbonate 26, BUN 5, creatinine 0.4, glucose 104. Calcium 8.7, magnesium 1.9. Abdominal x-ray dated 03/03/2017, impression, suggestion of constipation. ASSESSMENT AND PLAN: 1. Severe constipation, this is getting better, but this patient is not tolerating food. I have consulted the dietitian and I will continue with laxatives and Reglan. 2. Hypothyroidism. Continue with Synthroid. 3. Metastatic colorectal cancer, aware. This patient is followed by Dr. Stubbs as an outpatient. 4. Chronic pain secondary to metastatic disease. Continue with the same management. 5. Deep vein thrombosis prophylaxis with Lovenox. 6. Anxiety and depression. She is on Celexa and I added a low dose of Ativan for this patient. cc: Jeffy Anand MD
[2017-03-03] MEDS: SODIUM CHLORIDE 0.9% INJ PRN (16:18)
[2017-03-03] MEDS: MIRALAX PO SCH (20:43)
[2017-03-04] MEDS: DILAUDID IV PRN ×3 (00:03→09:29)
[2017-03-04] MEDS: PERCOCET-10 PO PRN ×2 (01:34→07:57)
[2017-03-04] MEDS: ROBAXIN PO SCH ×2 (01:47→09:02)
[2017-03-04 05:58] LABS: AGAP 15; BUN 5 mg/dL (8-22); CALCIUM 8.3 mg/dL (8.8-10.2); CHLORIDE 100 mmol/L (98-107); COSMO 270; SODIUM 136 mmol/L (136-145); TCO2 21 mmol/L (25-35)
[2017-03-04 06:10] LABS: MANUAL DIFF NEEDED? NO
[2017-03-04] MEDS: REGLAN PO SCH ×3 (06:14→11:43)
[2017-03-04] MEDS: PRILOSEC PO SCH (06:14)
[2017-03-04] MEDS: PEPCID IV SCH (06:14)
[2017-03-04] MEDS: SYNTHROID PO SCH (06:14)
[2017-03-04 06:26] LABS: BASO% 0.4 % (0.0-0.8); EOS# 0.06 X1000 (0.0-0.7); EOS% 0.8 % (0.0-10.0); HEMATOCRIT 32.4 % (37.0-47.0); HEMOGLOBIN 10.4 g/dL (12.0-16.0); LYMPH% 9.2 % (20.5-51.1); MCH 27.8 PG (27-31); MCHC 32.1 g/dL (33-37); MCV 86.6 FL (81-99); MONO# 0.77 X1000 (0.11-0.59); MONO% 10.1 % (1.7-9.3); MPV 9.6 FL (7.4-10.4); NEUT% 79.5 % (42.2-75.2); PLT 183 X1000 (130-400); RBC 3.74 XMIL (4.2-5.4)
[2017-03-04] MEDS: CELEXA PO SCH (09:02)
[2017-03-04] MEDS: MS CONTIN PO SCH (09:02)
[2017-03-04] MEDS: COLACE PO SCH (09:02)
[2017-03-04] MEDS: LOVENOX SUBQ SCH (09:03)
[2017-03-04] MEDS: LACTULOSE PO SCH ×2 (09:03→10:46)
[2017-03-04] MEDS ORDERED: PHENERGAN PO PRN (09:03)
[2017-03-04] MEDS: PATIENT'S OWN MED PO SCH (09:05)
[2017-03-04] MEDS: SODIUM CHLORIDE 0.9% INJ PRN (09:28)
[2017-03-04] MEDS: PHENERGAN IV PRN (09:28)
[2017-03-04] MEDS: DULCOLAX PR SCH (10:46)
[2017-03-04] MEDS: DILAUDID PO PRN ×2 (12:39→15:49)
[2017-03-04 13:50] VITALS: BP 112/69
[2017-03-04] MEDS ORDERED: NEURONTIN PO SCH (21:00)
--- NOTE | 2017-03-05 09:46 | DISCHARGE SUMMARY ---
ADMISSION DATE: 02/26/2017 DISCHARGE DATE: 03/04/2017 CONSULTATIONS: Dr. Rojas with hematology/oncology. PERTINENT PROCEDURES: On admission abdominal x-ray showed pulmonary metastasis seen and described on recent CT. Bony metastasis, likely ileus or partial obstruction. Final abdominal x-ray showed suggestion of constipation. DISCHARGE DIAGNOSES: 1. Ileus improved. Patient is tolerating a gastrointestinal soft diet. She was having bowel movements. Nausea and vomiting has improved, but then started having complaints of constipation. 2. Constipation that has now improved. Again patient is tolerating her gastrointestinal soft diet. 3. Metastatic colorectal cancer followed by Dr. Stubbs as an outpatient. 4. Hypothyroidism. Continue Synthroid. 5. Chronic pain secondary to metastatic disease, again followed by Dr. Stubbs. Continue home management. 6. Anxiety and depression. Continue with Celexa. HOSPITAL COURSE: Ms. Langston is a 31-year-old female known to our service recently discharged for nausea, vomiting and abdominal pain. She has an unfortunate history of metastatic colon cancer with lung involvement. She had been here 2 weeks ago and was seen by GI and hem/onc. There were no interventions done. She improved with bowel rest, fluids and antiemetics. After discharge, she states she was feeling actually fairly good. She had been eating up until the night before her admission. She had acute onset of right lower quadrant abdominal pain followed by persistent nausea and vomiting. The intractable nausea and vomiting brought her to the ED. She was having bowel movements without diarrhea. Laboratory data showed a white count of 12 with a questionable UTI. Other lab work was unremarkable. Abdominal x-ray showed pulmonary metastasis better seen on recent CT. Bony metastasis as well as partial ileus or partial obstruction. She was kept n.p.o. and started on IV fluids, as well as antiemetics and IV pain medicine, as well as a consult for hem/onc. Throughout her first night she had several bowel movements. The next day she was initiated on a clear liquid diet. Her nausea and vomiting was controlled with antiemetics. She tolerated her liquid. She was advanced to a GI soft diet. She was initiated on Reglan therapy. Patient did stop having bowel movements and did have an abdominal x-ray that showed constipation. She was started on laxative therapy and continued with her Reglan. Her constipation did improve. Dietary was brought in to help the patient with food choices. They recommended to continue with Ensure chocolate t.i.d. with meals and add Boost chocolate with breakfast daily for trial taste. They recommend and encourage good intake of all meals. Dr. Wagner assessed the patient. She is appropriate for discharge back home today. She does have a follow- up appointment next week with her sleeve baster for a repeat assessment of her next treatment cycle. VITAL SIGNS: Temperature is 98.1 degrees, heart rate 99, respirations 14, blood pressure 122/75, O2 is 96% on room air. DISCHARGE DIET: GI soft with Ensure with each meal and Boost with breakfast. DISCHARGE MEDICATIONS: Will be as per Dr. Wagner. Please see MAR. FOLLOWUP: The patient is being discharged home with her and will follow up with her sleeve baster next week in their office for repeat assessment for her next treatment cycle. She can also follow up with her primary care physician, Dr. Stephon Harrison, in 7-10 days. Patient can return to the ED for any worsening of symptoms. DISCHARGE TIME: 30 minutes. Dictated by BRANDEN Blount for Jeffy Anand MD cc: Jeffy Anand MD
== END 2017-03-04 17:11 | disposition home or self-care (01) ==
LOC: ED 13:54 → 4N 16:18 → SUATTDRO 16:18
PROVIDERS: ATTEND Internal Medicine